=== PATIENT | male | born 1940 | race Caucasian/White ===

== ENCOUNTER 2018-09-20 08:29 | Day surgery (SDC) | payer MEDICARE, OTHER ==
[~2018-09-20] VITALS: Ht 182.9 cm; Wt 79.4 kg
[~2018-09-20 08:29] MED LIST: ASPI81CH PO; B-121000 MC2 PO; CHOL10002 PO; GALA8 PO; Hair, Skin & N1 EACH PO; METO25 PO; NAPR220 PO; PSYL5.85P PO; QUININE SULFAT324 MG PO; SIMV10 PO; XARELTO20 MG; [UNRECOGNIZED DRUG - OTHER] INJ
[2018-09-20] MEDS ORDERED: Pacerone100 MG PO (09:27)
[2018-09-20] MEDS ORDERED: MEMA10 (09:27)
[2018-09-20] MEDS ORDERED: METO50ER PO (09:28)
[2018-09-20] MEDS ORDERED: Exelon1 EAC1 TD (09:30)
--- NOTE | 2018-09-20 09:33 | NUR ---
09/20/18 0933 Zoila Macdonald CALL LIGHT WITHIN REACH
== END 2018-09-20 10:44 | disposition home or self-care (01) ==
LOC: ORSCSDS 08:29
PROVIDERS: Ophthalmology
PROC: 08RJ3JZ Replacement of Right Lens with Synthetic Substitute, Percutaneous Approach (ICD-10-PCS; principal; 2018-09-20 10:00)
DX: H25.11 Age-related nuclear cataract, right eye (principal); I10 Essential (primary) hypertension; I48.91 Unspecified atrial fibrillation; Z79.01 Long term (current) use of anticoagulants; Z79.899 Other long term (current) drug therapy
CPT/HCPCS: J2001; J2250; J3010; J3301; J7040; J7120; V2632

== ENCOUNTER → 2020-03-11 | Outpatient (CLI) | payer MEDICARE, OTHER ==
[~2020-03-11] MED LIST changes: +Exelon1 EAC1 TD; +MEMA10; +METO50ER PO; +Pacerone100 MG PO
== END | disposition home or self-care (01) ==
LOC: LAB SHORT 14:10 → PLD 14:10
DX: D48.5 Neoplasm of uncertain behavior of skin (principal)
CPT/HCPCS: 88305

== ENCOUNTER 2021-06-03 12:19 | Inpatient (IN) | payer MEDICARE, OTHER ==
[~2021-06-03] VITALS: Ht 180.3 cm; Wt 83.0 kg
[~2021-06-03 12:19] MED LIST changes: -XARELTO20 MG; +XARELTO20 MG PO
[2021-06-03 12:47] LABS: BASOPHILS ABSOLUTE AUTO 0.03 K/mm3 (0.00-0.23); BASOPHILS PERCENT AUTO 0 % (0-2); EOSINOPHILS ABSOLUTE AUTO 0.02 K/mm3 (0.00-0.68); EOSINOPHILS PERCENT AUTO 0 % (0-6); Hematocrit 39.9 % (37.0-53.0); Hemoglobin 12.8 g/dL (13.5-17.5); IMMATURE GRAN ABSOLUTE AUTO 0.01 K/mm3 (0.00-0.10); IMMATURE GRAN PERCENT AUTO 0 % (0-1); LYMPHOCYTES ABSOLUTE AUTO 1.53 K/mm3 (0.84-5.20); LYMPHOCYTES PERCENT AUTO 22 % (21-46); MONOCYTES ABSOLUTE AUTO 0.76 K/mm3 (0.16-1.47); MONOCYTES PERCENT AUTO 11 % (4-13); Mean Corpuscular HGB 31.3 pg (26.0-34.0); Mean Corpuscular HGB Conc 32.1 g/dL (31.5-36.5); Mean Corpuscular Volume 98 fL (80-100); Mean Platelet Volume 10.9 fL (9.1-12.4); NEUTROPHILS ABSOLUTE AUTO 4.69 K/mm3 (1.96-9.15); NEUTROPHILS PERCENT AUTO 67 % (41-73); Platelet Count 334 K/mm3 (150-400); RDW Coefficient Variation 14.1 % (11.7-14.2); RDW Standard Deviation 50.7 fL (35.1-46.3); Red Blood Cell Count 4.09 M/mm3 (4.30-5.90); White Blood Cell Count 7.04 K/mm3 (4.00-11.30)
[2021-06-03] MEDS ORDERED: RIVASTIGMINE1 EAC4 (12:59)
[2021-06-03] MEDS ORDERED: IRBE75 PO (13:00)
[2021-06-03 13:13] LABS: Albumin, Blood 3.4 g/dL (3.4-5.0); Bilirubin, Total 0.7 mg/dL (0.1-1.0); Bun/Creatinine Ratio 26.5 (12.0-20.0); Creatinine, Blood 1.32 mg/dL (0.60-1.20); Globulin, Blood 3.3 g/dL (2.2-4.0); Potassium, Blood 4.4 mmol/L (3.5-5.5); Total Protein, Blood 6.7 g/dL (6.4-8.2)
--- NOTE | 2021-06-03 18:15 | NUR ---
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 PT ON CARDIZEM GTT AT 15MG/KG/HR HRR REMAINS AFIB/AFLUTTER 120'S, PT WAS STARTED ON DIGOXIN IN THE ER. BP SYSTOLIC 115'S, SATS ABOVE 95% ON RA, AFEBRILE. PT IS AMBULATORY GETS UP TO USE THE BATHROOM HRR INCREASES WITH EXERTION 140-160'S. BED ALARM ON FOR SAFETY PT FOLLOWS DIRECTION REDIRECTABLE AT TIMES, GETS FRUSTRATED EASILY. PLANNING ON STAYING THE NIGHT TO HELP WITH PT'S CARE. NO OTHER ISSUES AT THIS TIME. WILL REPORT TO ONCOMING SHIFT
[2021-06-03 18:34] LABS: Source, Urine Clean Catch
[2021-06-03 18:58] LABS: Appearance, Urine Clear (Clear); Bilirubin, Urine Neg (Neg); Blood, Urine Neg (Neg); Color, Urine Yellow (P-Yellow); Glucose Qualitative, Urine Neg (Neg); Ketones, Urine 2+ (Neg); Leukocyte Esterase, Urine Neg (Neg); Nitrite, Urine Neg (Neg); Protein, Urine 2+ (Neg); Urobilinogen, Urine NORM (Normal)
[2021-06-03 19:19] LABS: Red Blood Cells, Urine 0-2 /hpf (0-2); Squamous Epithelial Cells Rare /hpf (Few); White Blood Cells, Urine 0-2 /hpf (0-5)
[2021-06-03 19:20] LABS: Bacteria Few /hpf; Mucus Light (0-Heavy)
[2021-06-04 03:36] LABS: BASOPHILS ABSOLUTE AUTO 0.03 K/mm3 (0.00-0.23); BASOPHILS PERCENT AUTO 1 % (0-2); EOSINOPHILS PERCENT AUTO 2 % (0-6); Hematocrit 35.4 % (37.0-53.0); Hemoglobin 11.4 g/dL (13.5-17.5); Mean Corpuscular HGB 31.2 pg (26.0-34.0); Mean Corpuscular HGB Conc 32.2 g/dL (31.5-36.5); Mean Corpuscular Volume 97 fL (80-100); Platelet Count 266 K/mm3 (150-400); RDW Coefficient Variation 14.1 % (11.7-14.2); RDW Standard Deviation 50.3 fL (35.1-46.3); Red Blood Cell Count 3.65 M/mm3 (4.30-5.90); White Blood Cell Count 5.72 K/mm3 (4.00-11.30)
[2021-06-04 03:41] LABS: IMMATURE GRAN PERCENT AUTO 0 % (0-1); LYMPHOCYTES ABSOLUTE AUTO 2.09 K/mm3 (0.84-5.20); LYMPHOCYTES PERCENT AUTO 37 % (21-46); MONOCYTES ABSOLUTE AUTO 0.66 K/mm3 (0.16-1.47); MONOCYTES PERCENT AUTO 12 % (4-13); NEUTROPHILS ABSOLUTE AUTO 2.84 K/mm3 (1.96-9.15); NEUTROPHILS PERCENT AUTO 50 % (41-73)
[2021-06-04 03:55] LABS: Albumin, Blood 2.8 g/dL (3.4-5.0); Albumin/Globulin Ratio 1.1 (0.8-1.8); Bilirubin, Total 0.7 mg/dL (0.1-1.0); Calcium, Blood 8.2 mg/dL (8.5-10.1); Creatinine, Blood 1.22 mg/dL (0.60-1.20); Globulin, Blood 2.6 g/dL (2.2-4.0); Potassium, Blood 4.1 mmol/L (3.5-5.5); Total Protein, Blood 5.4 g/dL (6.4-8.2)
--- NOTE | 2021-06-04 04:17 | NUR ---
END OF SHIFT SUMMARY: PATIENTS MENTATION HAS BEEN UNCHAGED THROUGH THE NIGHT, COOPERATIVE, BUT MILDY GRUMPY. CARDIAC, PATIENT DENIES CHEST PAIN OR SOB. HAS BEEN AFIB TO SR AND BACK, MAINLY SUSTATING IN THE 90'S BUT HAS RANGED THROUGH THE NIGHT FROM 50-120. SUSTAINED THE 50'S FOR A COUPLE TIMES FOR A PERIOD OF A MINUTE, NOT LONGER. CARDIZEM RUNNING AT 5, FLUIDS COMPLETED. LUNGS SOUNDS CLEAR. RIGHT IV IS NOW POSITIONAL. WILL CONTINUE TO MONITOR.
--- NOTE | 2021-06-04 07:27 | NUR ---
ASSUMPTION OF CARE RECEIVED REPORT FROM LANETTE RN. PT IS CURRENTLY ASLEEP IN BED, PT'S SPOUSE IS IN ROOM AT BEDSIDE.
--- NOTE | 2021-06-04 17:56 | NUR ---
SHIFT SUMMARY PT HAS BEEN RESTING IN ROOM. PT'S SPOUSE HAS BEEN IN ROOM AT BEDISDE ALL DAY. PT HAS HAD PERIODS OF AGITATION AND GREATER CONFUSION, THE PT'S SPOUSE WOULD REORIENT AND REDIRECT THE PT TO VARYING DEGREES OF SUCCESS. HEART RATE WAS SINUS 60'S AT AM SHIFT CHANGE AND HAS BEEN A.FIB 100-160 THROUGHOUT THE DAY. SBP HAS RANGED 77-127.
--- NOTE | 2021-06-05 04:52 | NUR ---
SHIFT SUMMARY PT REMAINS ALERT, AND ORIENTED TO SELF AND FAMILY. PT CONFUSED ON PLACE AND SITUATION. PT IRRITABLE THROUGHOUT SHIFT AND DIFFICULT TO REORIENT. SPOUSE AT BEDSIDE ALL OF SHIFT TO HELP WITH REORIENTATION. PT DENIES ANY PAIN. HR HAS BEEN 110-130'S MOST OF SHIFT. BP STABLE. CARDIZEM GTT INFUSING AT 10ML/HR. O2 SATS REMAIN ABOVE 90% ON RA. PT'S EXPRESSED FRUSTRATION AND STATES SHE WOULD LIKE TO TAKE THE PATIENT HOME TODAY. THIS RN EDUCATEDS PT AND SPOUSE ABOUT NEED TO IMPROVE HR BEFORE DISCHARGE. PT AND SPOUSE STATE THAT THEY WILL STAY TO SEE PHYSICIAN ROUND IN THE AM. WILL CONTINUE TO MONITOR AND REPORT TO ONCOMING RN
[2021-06-05 05:57] LABS: Hematocrit 43.6 % (37.0-53.0); Mean Corpuscular HGB 30.8 pg (26.0-34.0); Mean Corpuscular HGB Conc 32.1 g/dL (31.5-36.5); Mean Corpuscular Volume 96 fL (80-100); Mean Platelet Volume 10.9 fL (9.1-12.4); Platelet Count 374 K/mm3 (150-400); RDW Coefficient Variation 13.8 % (11.7-14.2); RDW Standard Deviation 49.1 fL (35.1-46.3); Red Blood Cell Count 4.55 M/mm3 (4.30-5.90); White Blood Cell Count 7.84 K/mm3 (4.00-11.30)
[2021-06-05 06:12] LABS: Bun/Creatinine Ratio 17.2 (12.0-20.0); Calcium, Blood 9.2 mg/dL (8.5-10.1); Creatinine, Blood 1.28 mg/dL (0.60-1.20); Potassium, Blood 3.8 mmol/L (3.5-5.5)
[2021-06-05 06:33] LABS: BAND PERCENT MAN 2 % (0-8); BASOPHILS PERCENT MAN 0 % (0-2); EOSINOPHILS PERCENT MAN 0 % (0-6); LYMPHOCYTES % ATYPICAL MANUAL 2 % (0-0); LYMPHOCYTES ABSOLUTE MAN 2.11 K/mm3 (0.84-5.20); LYMPHOCYTES PERCENT MAN 25 % (21-46); MONOCYTES ABSOLUTE MAN 0.31 K/mm3 (0.16-1.47); MONOCYTES PERCENT MAN 4 % (4-13); SEG NEUTROPHILS PERCENT MAN 67 % (41-73); TOTAL CELLS COUNTED 100
[2021-06-05] MEDS ORDERED: PACERONE PO (09:29)
[2021-06-05] MEDS ORDERED: DILT60 PO (09:30)
[2021-06-05] MEDS ORDERED: EUTHYROX50 MCG PO (09:31)
--- NOTE | 2021-06-05 10:17 | NUR ---
DISCHARGE UPDATE DISCHARGE PACKET GONE OVER WITH PT AND PT AT 1000. PT LEFT PCU AT 1010 VIA WHEELCHAIR AND ON RA. PT ABLE TO TRANSFER SELF TO AND FROM WHEELCHAIR. PT BELONGINGS IN BAGS AND WITH DURING DISCHARGE.
== END 2021-06-05 10:13 | disposition home or self-care (01) | DRG 309 ==
LOC: ER 12:19 → PCU 12:20
PROVIDERS: Family Medicine; Physician Assistant; ADMIT Internal Medicine
DX: I48.91 Unspecified atrial fibrillation (principal); I50.40 Unspecified combined systolic (congestive) and diastolic (congestive) heart failure; I27.20 Pulmonary hypertension, unspecified; T46.2X5A Adverse effect of other antidysrhythmic drugs, initial encounter; I08.1 Rheumatic disorders of both mitral and tricuspid valves; I11.0 Hypertensive heart disease with heart failure; E03.2 Hypothyroidism due to medicaments and other exogenous substances; F03.90 Unspecified dementia, unspecified severity, without behavioral disturbance, psychotic disturbance, mood disturbance, and anxiety; E78.5 Hyperlipidemia, unspecified; Z98.41 Cataract extraction status, right eye; Z79.899 Other long term (current) drug therapy; Z28.89 Immunization not carried out for other reason; Z88.1 Allergy status to other antibiotic agents; Z79.01 Long term (current) use of anticoagulants; Z98.890 Other specified postprocedural states; Z85.46 Personal history of malignant neoplasm of prostate; Z90.49 Acquired absence of other specified parts of digestive tract; Z90.89 Acquired absence of other organs; Z90.79 Acquired absence of other genital organ(s)
CPT/HCPCS: 36415; 71045; 80048; 80053; 81001; 83735; 83880; 84443; 84484; 85025; 93005; 93010; 93306; 96365; 96366; 96376; 99285-25; A9270; G0378; J1160; J7030

== ENCOUNTER → 2021-08-11 | Outpatient (CLI) | payer MEDICARE, OTHER ==
[~2021-08-11] MED LIST changes: +DILT60 PO; +EUTHYROX50 MCG PO; +IRBE75 PO; +PACERONE PO; +RIVASTIGMINE1 EAC4
== END | disposition home or self-care (01) ==
LOC: PLD 08:27 → LAB SHORT 08:27 → LAB 08:27
DX: D48.5 Neoplasm of uncertain behavior of skin (principal)
CPT/HCPCS: 88305

== ENCOUNTER → 2021-10-23 | Outpatient (CLI) | payer MEDICARE, OTHER ==
[2021-10-23 12:30] LABS: Free Thyroxine 1.15 ng/dL (0.70-1.60)
[2021-10-23 12:32] LABS: Thyroid Stimulating Hormone 5.6 uIU/mL (0.360-4.800); Triiodothyronine, Free 2.33 pg/mL (2.18-3.98)
== END | disposition home or self-care (01) ==
LOC: LAB SHORT 10:40 → LAB 10:40
PROVIDERS: Internal Medicine
DX: E78.5 Hyperlipidemia, unspecified (principal); E03.9 Hypothyroidism, unspecified; I48.0 Paroxysmal atrial fibrillation; R73.9 Hyperglycemia, unspecified
CPT/HCPCS: 84439; 84443; 84481